=== PATIENT | female | born 1960 | race Caucasian/White ===

== ENCOUNTER 2017-03-13 20:35 | Emergency (ER) | payer OTHER ==
[~2017-03-13 20:35] MED LIST: ALAV10TA PO; BUPR300T PO; CALC500T35 PO; CITA-48 PO; D31000CA PO; EQUALIQ7; LEVO50TA4 PO; MACR100C PO; SIMV20 PO; [UNRECOGNIZED DRUG - CODE]
[2017-03-13 20:38] VITALS: BP 134/88; PULSE 88; RESP 18; TEMP 97.8; O2SAT 97
--- NOTE | 2017-03-13 21:36 | PD ---
HPI Chief Complaint: GI Complaint Time Seen by Provider: 21:33 Travel History International Travel<30 days: No Contact w/Intl Traveler<30days: No Traveled to known affect area: No History of Present Illness HPI Patient comes in after having one episode of vomiting while at work today. Patient denies any blood in vomit and reports it was nonbilious. Patient states she's been having increased postnasal drip and sinus pressure similar to previous sinus infections. Patient's after she vomited the pressure got worse as well as feeling more postnasal drip. Patient denies any chest pain, shortness of breath, abdominal pain, nausea currently, loss or change in bowel or bladder, neck pain, fevers, or numbness or tingling anywhere. Patient reports her sinus infections occasionally caused her to vomit secondary to the postnasal drip. Patient reports she is having headaches similar to previous sinus headaches. Patient describes pain as a pressure like in her ears and facial sinuses that radiates over her head. Patient denies anything making it better. PFSH Past Medical History Asthma: Yes Diminished Hearing: Yes ([place]) Immunizations Current: Yes Tubal Ligation: Yes Past Surgical History Section: Yes (X3) Endocrine Surgery: Yes (PARATHYROID GLAND REMOVED) Social History Alcohol Use: No Tobacco Use: No Substance Use: No Allergies-Medications (Allergen,Severity, Reaction): Coded Allergies: Contrast Media (Verified Allergy, Unknown, 03/13/17) Reported Meds & Prescriptions Reported Meds & Active Scripts Active Augmentin (Amoxicillin-Clavulanate) 875-125 Mg Tab 1 Tab PO BID 10 Days Zofran Odt (Ondansetron Odt) 4 Mg Tab 4 Mg SL Q6HR PRN Reported Vitamin D3 (Cholecalciferol) 50,000 Unit Cap 50,000 Units PO OROZCO, WE Alavert (Loratadine) 10 Mg Tab 10 Mg PO [facility] Low Dose Aspiri (Aspirin) 81 Mg Chw Bupropion Hcl Xl (Bupropion HCl) 300 Mg Tab 300 Mg PO DAILY Levothyroxine 50 mcg (Levothyroxine Sodium) 50 Mcg Tab 75 Mcg PO DAILY Simvastatin 20 mg (Simvastatin) 20 Mg Tab 1 Tab PO HS Citalopram Hydrobromide 40 Mg Tab 40 Mg PO DAILY Review of Systems Except as stated in HPI: all other systems reviewed are Neg Physical Exam Narrative GENERAL: Well-developed, overly nourished, in no acute distress, and non-ill appearing. SKIN: Focused skin assessment warm and dry. HEAD: Atraumatic. Normocephalic. EYES: Pupils equal and round. EOMI. No scleral icterus. No injection or drainage. Tympanic membranes pearly cruz bilaterally. Posterior pharynx nonerythematous without exudate. Uvula is midline. Postnasal drip noted. Tenderness to facial sinuses to palpation. ENT: No nasal bleeding or discharge. Mucous membranes pink and moist. NECK: Trachea midline. No cervical lymphadenopathy. Supple. No nuclear rigidity. CARDIOVASCULAR: Regular rate and rhythm. No murmur appreciated. RESPIRATORY: No accessory muscle use. No respiratory distress. Clear to auscultation. Breath sounds equal bilaterally. GASTROINTESTINAL: Abdomen soft, non-tender, nondistended. Hepatic and splenic margins not palpable. Normal bowel sounds 4. No pulsatile mass. MUSCULOSKELETAL: No obvious deformities. No clubbing. No cyanosis. No edema. Full range of motion. NEUROLOGICAL: Awake and alert. No obvious cranial nerve deficits. Motor grossly within normal limits. Normal speech. PSYCHIATRIC: Appropriate mood and affect; insight and judgment normal. Data Data Last Documented VS Vital Signs Date Time Temp Pulse Resp B/P Pulse Ox O2 Delivery O2 Flow Rate FiO2 03/13/17 22:54 77 18 154/93 96 Room Air 03/13/17 20:38 97.8 Orders Ondansetron Odt (Zofran Odt) (03/13/17 21:45) Amoxicil-Clavulanate (Augmentin) (03/13/17 21:45) Acetaminophen (Tylenol) (03/13/17 22:45) [facility] Medical Decision Making Medical Screen Exam Complete: Yes Emergency Medical Condition: Yes Differential Diagnosis Sinusitis, sinus headache, vomiting, other Narrative Course 1230 patient reassessed states she is feeling much better, still having a slight headache. Patient requested Tylenol for this. She is hungry and wanting to eat. Patient denies any other complaints or concerns. Patient looks great, non-ill appearing. The patient is tolerating fluids and is well hydrated. Appears acute sinusitis. No clinical evidence by history or evaluation to suspect meningitis and/or sepsis. There was no evidence to suggest deep abscess or cavernous sinus involvement. I discussed with the patient, diagnosis, plan of care, medications and to follow up with the patient s primary physician and/or ENT. The patient was instructed to return if the worsens in anyway, especially if not tolerating fluids, increased sinus pain or swelling, worsening headache, persistent fever, difficulty swallowing or breathing, or as needed. The patient agreed with plan. Patient in no obvious distress upon re-evaluation. Discussed patient with Dr. Stephen prior to discharge, who is in agreement with plan of care and disposition. Patient was asked if they wanted to speak to my attending, which the patient did not wish to do at this time. Any questions/concerns in reference to patient diagnosis/condition discussed and clarified prior to patient's discharge. Reinforced sheer importance of close follow up with patient's primary physician or primary care clinic and/or ENT. Instructed patient to return to ED immediately, if symptoms return/worsen. Pt showed understanding of above instructions. Further instructions and recommendations were detailed in discharge paperwork. Pt ambulated without difficulty out of ED at discharge. Diagnosis Primary Impression: Sinusitis Qualified Code: J32.9 - Sinusitis, unspecified chronicity, unspecified location Additional Impression: Sinus headache Patient Instructions: General Instructions, Sinusitis (ED) Additional Instructions: Follow-up with your primary care physician and/or ENT next week for reevaluation. Take all medication as prescribed. Drink plenty of non- caffeinated and nonalcoholic fluids. Return to the emergency department if symptoms get worse. Med/Other Pt SpecificInfo: Prescription(s) given Scripts Amoxicillin-Clavulanate (Augmentin)875-125 Mg Tab1 Tab PO BID 10 Days Ref 0 Prov:Genevieve Stephen MD 03/13/17 Ondansetron Odt (Zofran Odt)4 Mg Tab4 Mg SL Q6HR PRN (Nausea/Vomiting) #12 TAB Ref 0 Prov:Genevieve Stephen MD 03/13/17 Disposition: 01 DISCHARGE HOME Condition: Stable Gerald Patel Mar 13, 2017 21:36
[2017-03-13] MEDS ORDERED: ONDANSETRON ODT 4 MG TAB PO ONE (21:45)
[2017-03-13] MEDS ORDERED: AMOXICILLIN/CLAVULANATE K 875 MG TAB PO ONE (21:45)
[2017-03-13] MEDS ORDERED: CHOL1CAP34 PO (22:27)
[2017-03-13] MEDS ORDERED: AUGM875T3 PO (22:30)
[2017-03-13] MEDS ORDERED: ZOFR4TAB3 SL (22:30)
[2017-03-13] MEDS ORDERED: ACETAMINOPHEN 500 MG CPLT PO ONE (22:45)
[2017-03-13 22:54] VITALS: BP 154/93; PULSE 77; RESP 18; O2SAT 96
== END 2017-03-13 22:59 | disposition home or self-care (01) ==
LOC: NEPC 20:35
DX: J32.9 Chronic sinusitis, unspecified (principal)
CPT/HCPCS: 99284

== ENCOUNTER 2018-01-04 15:19 | Emergency (ER) | payer OTHER ==
[~2018-01-04] VITALS: Ht 149.9 cm; Wt 98.0 kg
[~2018-01-04 15:19] MED LIST changes: +AUGM875T3 PO; -CALC500T35 PO; +CHOL1CAP34 PO; -D31000CA PO; -EQUALIQ7; -MACR100C PO; +ZOFR4TAB3 SL
[2018-01-04 15:29] VITALS: BP 152/78; PULSE 94; RESP 18; TEMP 97; O2SAT 99
[2018-01-04 15:44] LABS: BILIRUBIN, URINE NEG (NEG); BLOOD, URINE NEG (NEG); GLUCOSE,URINE NEG (NEG); KETONE, URINE NEG (NEG); NITRITE,URINE NEG (NEG); URINE COLOR YELLOW (YELLW/STRAW); URINE LEUKOCYTE ESTERASE NEG (NEG)
[2018-01-04] MEDS ORDERED: SODIUM CHLORIDE 0.9% FLUSH 10 ML FLUSH IV FLUSH PRN (15:45)
--- NOTE | 2018-01-04 15:50 | PD ---
HPI Chief Complaint: Abdominal Pain Time Seen by Provider: 15:45 Travel History International Travel<30 days: No Contact w/Intl Traveler<30days: No Traveled to known affect area: No History of Present Illness HPI 57-year-old female patient with history of thyroid disease, presents to the ER today because she has had several days history of right upper quadrant abdominal pain radiating to the right shoulder which she states hurts more when she takes a deep breath. She denies any fevers, coughing, or any other symptoms. She states the pain is currently a 5 out of 10. She had taken 6 tablets of [id number] Tylenol this afternoon because of the pain. She denies any use of Tylenol before that. Modifying Factors: None Associated Signs & Symptoms: Right upper quadrant abdominal pain with radiation to the right shoulder Risk Factors: None PFSH Past Medical History Asthma: Yes High Cholesterol: Yes Diabetes: No Diminished Hearing: Yes ([place]) Hypertension: Yes Immunizations Current: Yes Thyroid Disease: Yes Tetanus Vaccination: Unknown ?: Not Tubal Ligation: Yes Past Surgical History Section: Yes (X3) Endocrine Surgery: Yes (PARATHYROID GLAND REMOVED) Social History Alcohol Use: No Tobacco Use: No Substance Use: No Allergies-Medications (Allergen,Severity, Reaction): Coded Allergies: diatrizoate meglumine (Unverified Allergy, Unknown, 01/04/18) gadobenic acid (Unverified Allergy, Unknown, 01/04/18) gadodiamide (Unverified Allergy, Unknown, 01/04/18) gadoteridol (Unverified Allergy, Unknown, 01/04/18) iodixanol (Unverified Allergy, Unknown, 01/04/18) iohexol (Unverified Allergy, Unknown, 01/04/18) Reported Meds & Prescriptions Reported Meds & Active Scripts Active Reported Zyrtec (Cetirizine HCl) 10 Mg Capsule 1 Tab DAILY Aspirin 81 (Aspirin) 81 Mg Tabdr 81 Mg PO DAILY Bupropion HCl ER 24 HR (Bupropion HCl) 300 Mg Tab 300 Mg PO DAILY Levothyroxine (Levothyroxine Sodium) 50 Mcg Tab 50 Mcg PO DAILY Simvastatin 20 Mg Tab 20 Mg PO DAILY Citalopram (Citalopram Hydrobromide) 40 Mg Tab 40 Mg PO DAILY Review of Systems Except as stated in HPI: all other systems reviewed are Neg Physical Exam Narrative GENERAL: Well-developed middle-age female patient currently in mild distress. Awake and oriented 3. SKIN: Focused skin assessment warm/dry. HEAD: Atraumatic. Normocephalic. EYES: Pupils equal and round. No scleral icterus. No injection or drainage. ENT: No nasal bleeding or discharge. Mucous membranes pink and moist. NECK: Trachea midline. No JVD. CARDIOVASCULAR: Regular rate and rhythm. No murmur appreciated. RESPIRATORY: No accessory muscle use. Clear to auscultation. Breath sounds equal bilaterally. GASTROINTESTINAL: Abdomen soft, non-tender, nondistended. Hepatic and splenic margins not palpable. MUSCULOSKELETAL: No obvious deformities. No clubbing. No cyanosis. No edema. NEUROLOGICAL: Awake and alert. No obvious cranial nerve deficits. Motor grossly within normal limits. Normal speech. PSYCHIATRIC: Appropriate mood and affect; insight and judgment normal. Data Data Last Documented VS Vital Signs Date Time Temp Pulse Resp B/P (MAP) Pulse Ox O2 Delivery O2 Flow Rate FiO2 01/04/18 15:29 97.0 94 18 152/78 (102) 99 Orders Orders Urinalysis - C+S If Indicated (01/04/18 15:29) Complete Blood Count With Diff (01/04/18 15:45) Comprehensive Metabolic Panel (01/04/18 15:45) Lipase (01/04/18 15:45) Iv Access Insert/Monitor (01/04/18 15:45) Ecg Monitoring (01/04/18 15:45) Oximetry (01/04/18 15:45) Sodium Chloride 0.9% Flush (Ns Flush) (01/04/18 15:45) Chest, Single Ap (01/04/18 15:45) D-Dimer (01/04/18 15:45) Tylenol (Acetaminophen) (01/04/18 15:45) Ct Abd/Pel W/O Iv Contrast (01/04/18 17:22) Ed Discharge Order (01/04/18 18:33) Labs Laboratory Tests Test 01/04/18 15:30 01/04/18 15:50 Urine Color YELLOW Urine Turbidity CLEAR Urine pH 6.0 Urine Specific [place] LESS/EQUAL 1.005 Urine Protein NEG mg/dL Urine Glucose (UA) NEG mg/dL Urine Ketones NEG mg/dL Urine Occult Blood NEG Urine Nitrite NEG Urine Bilirubin NEG Urine Urobilinogen 0.2 MG/DL Urine Leukocyte Esterase NEG Urine WBC 0-2 /hpf Urine Squamous Epithelial Cells 0-5 /hpf Microscopic Urinalysis Comment CULT NOT INDICATED White Blood Count 6.1 TH/MM3 Red Blood Count 4.48 MIL/MM3 Hemoglobin 13.1 GM/DL Hematocrit 39.7 % Mean Corpuscular Volume 88.7 FL Mean Corpuscular Hemoglobin 29.3 PG Mean Corpuscular Hemoglobin Concent 33.0 % Red Cell Distribution Width 13.7 % Platelet Count 328 TH/MM3 Mean Platelet Volume 7.7 FL Neutrophils (%) (Auto) 62.2 % Lymphocytes (%) (Auto) 25.2 % Monocytes (%) (Auto) 7.1 % Eosinophils (%) (Auto) 3.6 % Basophils (%) (Auto) 1.9 % Neutrophils # (Auto) 3.9 TH/MM3 Lymphocytes # (Auto) 1.5 TH/MM3 Monocytes # (Auto) 0.4 TH/MM3 Eosinophils # (Auto) 0.2 TH/MM3 Basophils # (Auto) 0.1 TH/MM3 CBC Comment DIFF FINAL Differential Comment D-Dimer Quantitative (PE/DVT) 0.39 MG/L FEU Blood Urea Nitrogen 15 MG/DL Creatinine 1.00 MG/DL Random Glucose 99 MG/DL Total Protein 6.6 GM/DL Albumin 3.2 GM/DL Calcium Level 8.8 MG/DL Alkaline Phosphatase 109 U/L Aspartate Amino Transf (AST/SGOT) 18 U/L Alanine Aminotransferase (ALT/SGPT) 15 U/L Total Bilirubin 0.4 MG/DL Sodium Level 140 MEQ/L Potassium Level 4.0 MEQ/L Chloride Level 107 MEQ/L Carbon Dioxide Level 25.6 MEQ/L Anion Gap 7 MEQ/L Estimat Glomerular Filtration Rate 57 ML/MIN Lipase 217 U/L Acetaminophen Level 47.3 MCG/ML [facility] Medical Decision Making Medical Screen Exam Complete: Yes Emergency Medical Condition: Yes Medical Record Reviewed: Yes Interpretation(s) Laboratory Tests Test 01/04/18 15:30 01/04/18 15:50 Albumin 3.2 GM/DL (3.4-5.0) Estimat Glomerular Filtration Rate 57 ML/MIN (>89) Acetaminophen Level 47.3 MCG/ML (10.0-30.0) Last 24 hours Impressions Chest X-Ray 01/04/18 [id number] Signed Impressions: Service Date/Time: Thursday, January 04, 2018 15:50 - CONCLUSION: The lungs are clear. Burton Rdz MD Differential Diagnosis Muscular skeletal versus hepatitis versus pneumonia versus PE Narrative Course Lab work was fairly unremarkable. Her Tylenol levels were somewhat elevated but she took a calculated dose of less than 2 g and should not be a high enough overdose to cause problems with liver. She did not have any liver enzyme elevations. CAT scan does not show any signs of acute intra-abdominal processes. At this point, my plan would be to release her with follow-up to primary care doctor. Return for any worsening in symptoms as needed. The plan has been discussed with her and she states understanding. Diagnosis Primary Impression: Abdominal pain Disposition: 01 DISCHARGE HOME Condition: Stable Kolton Marie MD Jan 04, 2018 15:50
[2018-01-04 15:51] LABS: SQUAMOUS EPITHELIAL CELL URINE 0-5 /hpf (0-5); WBC, URINE 0-2 /hpf (0-5)
[2018-01-04 16:00] LABS: AUTOMATED NEUTROPHIL # 3.9 TH/MM3 (1.8-7.7); BASOPHIL # 0.1 TH/MM3 (0-0.2); BASOPHIL % 1.9 % (0.0-2.0); EOSINOPHIL # 0.2 TH/MM3 (0-0.4); EOSINOPHIL % 3.6 % (0.0-4.0); HEMATOCRIT 39.7 % (35.0-46.0); HEMOGLOBIN 13.1 GM/DL (11.6-15.3); LYMPH % 25.2 % (9.0-44.0); LYMPHOCYTE # 1.5 TH/MM3 (1.0-4.8); MEAN CELL VOLUME 88.7 FL (80.0-100.0); MEAN CORPUSCULAR HEMOGLOBIN 29.3 PG (27.0-34.0); MEAN PLATELET VOLUME 7.7 FL (7.0-11.0); MONO % 7.1 % (0.0-8.0); MONOCYTE # 0.4 TH/MM3 (0-0.9); NEUT % 62.2 % (16.0-70.0); PLATELET COUNT 328 TH/MM3 (150-450); RED BLOOD COUNT 4.48 MIL/MM3 (4.00-5.30); RED CELL DISTRIBUTION WIDTH 13.7 % (11.6-17.2); WHITE BLOOD COUNT 6.1 TH/MM3 (4.0-11.0)
[2018-01-04] MEDS ORDERED: LEVO50TA4 PO (16:03)
[2018-01-04] MEDS ORDERED: CITA40TA4 PO (16:03)
[2018-01-04] MEDS ORDERED: BUPR300T PO (16:03)
[2018-01-04] MEDS ORDERED: ASPI1TAB57 PO (16:03)
[2018-01-04] MEDS ORDERED: SIMV20TA PO (16:03)
[2018-01-04] MEDS ORDERED: CETI10CA3 (16:03)
[2018-01-04 16:17] LABS: CHLORIDE 107 MEQ/L (98-107); SODIUM (NA) 140 MEQ/L (136-145)
--- NOTE | 2018-01-04 16:21 | RADRPT ---
EXAM DATE/TIME: 01/04/2018 15:50 [facility] COMPARISON: No previous studies available for comparison. INDICATIONS : Shortness of breath. MEDICAL HISTORY : Hyperparathyroidism. SURGICAL HISTORY : None. ENCOUNTER: Initial ACUITY: 2 days PAIN SCORE: 0/10 LOCATION: Bilateral chest FINDINGS: A single view of the chest demonstrates the lungs to be symmetrically aerated without evidence of mas s, infiltrate or effusion. The cardiomediastinal contours are unremarkable. Mild left thoracolumbar scoliosis.. CONCLUSION: The lungs are clear. Burton Rdz MD on January 04, 2018 at 16:18 Board Certified Radiologist. This report was verified electronically.
[2018-01-04 16:22] LABS: ALBUMIN 3.2 GM/DL (3.4-5.0); BICARBONATE 25.6 MEQ/L (21.0-32.0); BLOOD UREA NITROGEN 15 MG/DL (7-18); CALCIUM 8.8 MG/DL (8.5-10.1); GLUCOSE,RANDOM 99 MG/DL (74-106)
[2018-01-04 16:25] LABS: ALT (GPT) 15 U/L (10-53); AST (GOT) 18 U/L (15-37); GLOMERULAR FILTRATION RATE 57 ML/MIN (>89)
[2018-01-04 16:27] LABS: TOTAL BILIRUBIN ADULT 0.4 MG/DL (0.2-1.0); TOTAL PROTEIN 6.6 GM/DL (6.4-8.2)
[2018-01-04 16:28] LABS: ALKALINE PHOSPHATASE 109 U/L (45-117)
[2018-01-04 17:15] LABS: ACETAMINOPHEN 47.3 MCG/ML (10.0-30.0)
--- NOTE | 2018-01-04 18:23 | RADRPT ---
EXAM DATE/TIME: 01/04/2018 18:01 [facility] COMPARISON: No previous studies available for comparison. INDICATIONS : Right sided abdominal pain. ORAL CONTRAST: No oral contrast ingested. RADIATION DOSE: 24.75 CTDIvol (mGy) MEDICAL HISTORY : Hypercholesterolemia. Hypertension. SURGICAL HISTORY : Tubal ligation. section.Parathyroid gland. ENCOUNTER: Initial ACUITY: 2 days PAIN SCALE: 5/10 LOCATION: Right abdomen TECHNIQUE: Volumetric scanning of the abdomen and pelvis was performed. Using automated exposure control and ad justment of the mA and/or kV according to patient size, radiation dose was kept as low as reasonably achievable to obtain optimal diagnostic quality images. DICOM format image data is available electro nically for review and comparison. FINDINGS: LOWER LUNGS: The visualized lower lungs are clear. LIVER: Homogeneous density without lesion for noncontrast technique. There is no dilation of the biliary tr ee. No calcified gallstones. SPLEEN: Normal size without lesion. PANCREAS: Within normal limits. KIDNEYS: There is a solitary 5 mm calcified stone lower pole collecting system on the left side. Bilateral re nal cysts, the largest of the normal left side measuring 3.5 cm. No evidence of hydronephrosis or hy droureter on either side. ADRENAL GLANDS: Within normal limits. VASCULAR: There is no aortic aneurysm. BOWEL/MESENTERY: The stomach, small bowel, and colon demonstrate no acute abnormality. There is no free intraperitone al air or fluid. ABDOMINAL WALL: Within normal limits. RETROPERITONEUM: There is no lymphadenopathy. BLADDER: No wall thickening or mass. REPRODUCTIVE: Within normal limits. INGUINAL: There is no lymphadenopathy or hernia. MUSCULOSKELETAL: Bladder degenerative changes in the posterior elements of the lower lumbar spine. CONCLUSION: 1. Nonobstructing 5 mm calcified stone lower pole left kidney. 2. Bilateral renal cysts. Burton Rdz MD on January 04, 2018 at 18:18 Board Certified Radiologist. This report was verified electronically.
[2018-01-04 19:03] VITALS: BP 104/79
== END 2018-01-04 19:08 | disposition home or self-care (01) ==
LOC: PHED 15:19
DX: R10.11 Right upper quadrant pain (principal); E07.9 Disorder of thyroid, unspecified; J45.909 Unspecified asthma, uncomplicated; E78.00 Pure hypercholesterolemia, unspecified; I10 Essential (primary) hypertension
CPT/HCPCS: 71045; 74176; 80053; 80307; 81001; 83690; 85025; 85379; 99284

== ENCOUNTER 2018-01-30 03:01 | Emergency (ER) | payer OTHER ==
[~2018-01-30] VITALS: Ht 149.9 cm; Wt 99.2 kg
[~2018-01-30 03:01] MED LIST changes: -ALAV10TA PO; +ASPI1TAB57 PO; -AUGM875T3 PO; +CETI10CA3; -CHOL1CAP34 PO; -CITA-48 PO; +CITA40TA4 PO; -SIMV20 PO; +SIMV20TA PO; -ZOFR4TAB3 SL; -[UNRECOGNIZED DRUG - CODE]
[2018-01-30 03:06] VITALS: BP 129/85; PULSE 93; TEMP 97.5; O2SAT 99
[2018-01-30] MEDS ORDERED: AUGM875T3 PO (03:30)
[2018-01-30] MEDS ORDERED: BENZ100 PO (03:30)
--- NOTE | 2018-01-30 03:30 | PD ---
HPI Chief Complaint: Cold / Flu Symptoms Time Seen by Provider: 03:17 Travel History International Travel<30 days: No Contact w/Intl Traveler<30days: No Traveled to known affect area: No History of Present Illness HPI The patient is a 57-year-old female that since yesterday his complaint of sinus drainage and sinus pain/pressure. She states she gets good relief from sinusitis which she has had before with Tessalon Perles and Augmentin. She does not smoke. She states that she has a history of chronic sinusitis. She states when it rains she gets this frequently. PFSH Past Medical History Asthma: Yes High Cholesterol: Yes Diabetes: No Patient Takes Glucophage: No Diminished Hearing: Yes ([place]) Hypertension: Yes Immunizations Current: Yes Thyroid Disease: Yes Tubal Ligation: Yes Past Surgical History Section: Yes (X3) Endocrine Surgery: Yes (PARATHYROID GLAND REMOVED) Social History Alcohol Use: No Tobacco Use: No Substance Use: No Allergies-Medications (Allergen,Severity, Reaction): Coded Allergies: diatrizoate meglumine (Unverified Allergy, Unknown, 01/30/18) gadobenic acid (Unverified Allergy, Unknown, 01/30/18) gadodiamide (Unverified Allergy, Unknown, 01/30/18) gadoteridol (Unverified Allergy, Unknown, 01/30/18) iodixanol (Unverified Allergy, Unknown, 01/30/18) iohexol (Unverified Allergy, Unknown, 01/30/18) Reported Meds & Prescriptions Reported Meds & Active Scripts Active Reported Zyrtec (Cetirizine HCl) 10 Mg Capsule 1 Tab DAILY Aspirin 81 (Aspirin) 81 Mg Tabdr 81 Mg PO DAILY Bupropion HCl ER 24 HR (Bupropion HCl) 300 Mg Tab 300 Mg PO DAILY Levothyroxine (Levothyroxine Sodium) 50 Mcg Tab 50 Mcg PO DAILY Simvastatin 20 Mg Tab 20 Mg PO DAILY Citalopram (Citalopram Hydrobromide) 40 Mg Tab 40 Mg PO DAILY Review of Systems Except as stated in HPI: all other systems reviewed are Neg Physical Exam Narrative GENERAL: Well-nourished, well-developed patient in no respiratory distress. She does have sniffling consistent with sinus drainage. Her vital signs show temperature of 97.5 with pulse of 93 but are otherwise normal. SKIN: Focused skin assessment warm/dry. HEAD: Normocephalic. EYES: No scleral icterus. No injection or drainage. NECK: Supple, trachea midline. No JVD or lymphadenopathy. CARDIOVASCULAR: Regular rate and rhythm without murmurs, gallops, or rubs. RESPIRATORY: Breath sounds equal bilaterally. No accessory muscle use. GASTROINTESTINAL: Abdomen soft, non-tender, nondistended. MUSCULOSKELETAL: No cyanosis, or edema. BACK: Nontender without obvious deformity. No CVA tenderness. ENT: The throat is clear and the tympanic membranes are clear. She does have maxillary sinus tenderness bilaterally. Data Data Last Documented VS Vital Signs Date Time Temp Pulse Resp B/P (MAP) Pulse Ox O2 Delivery O2 Flow Rate FiO2 01/30/18 03:18 93 20 99 Room Air 01/30/18 03:06 97.5 129/85 (100) [facility] Medical Decision Making Medical Screen Exam Complete: Yes Emergency Medical Condition: Yes Medical Record Reviewed: Yes Differential Diagnosis Allergic rhinitis, sinusitis, pharyngitis, ear infection Narrative Course The patient appears to have sinusitis. Plan: The patient will be given Augmentin 875 twice daily for 10 days and Tessalon Perles for the cough. Diagnosis Primary Impression: Sinusitis Additional Instructions: Since she do not smoke, the sinusitis is likely caused by allergens. When it rains, molds start putting out spores, and this may be irritating you. Follow- up next week with your primary care physician. Med/Other Pt SpecificInfo: Prescription(s) given Scripts Amoxicillin-Clavulanate (Augmentin) 875-125 Mg Tab 1 TAB PO BID for Infection, #20 TAB 0 Refills Prov: Israel Stevens MD 01/30/18 Benzonatate (Tessalon Perles) 100 Mg Cap 100 MG PO TID Y for COUGH, #30 CAP 0 Refills Prov: Israel Stevens MD 01/30/18 Disposition: 01 DISCHARGE HOME Condition: Stable Israel Stevens MD Jan 30, 2018 03:30
[2018-01-30] MEDS ORDERED: AMOXICILLIN/CLAVULANATE K 875 MG TAB PO ONE (03:45)
[2018-01-30] MEDS ORDERED: BENZONATATE 100 MG CAP PO ONE (03:45)
== END 2018-01-30 03:50 | disposition home or self-care (01) ==
LOC: PHED 03:01
DX: J32.9 Chronic sinusitis, unspecified (principal); E78.00 Pure hypercholesterolemia, unspecified; I10 Essential (primary) hypertension; J45.909 Unspecified asthma, uncomplicated
CPT/HCPCS: 99283

== ENCOUNTER → 2018-02-17 | Outpatient (CLI) | payer OTHER ==
[~2018-02-17] MED LIST changes: +AUGM875T3 PO; +BENZ100 PO
[2018-02-17 13:27] LABS: HEMATOCRIT 41.3 % (35.0-46.0); HEMOGLOBIN 13.7 GM/DL (11.6-15.3); MEAN CELL VOLUME 89.4 FL (80.0-100.0); MEAN CORPUSCULAR HEMOGLOBIN 29.6 PG (27.0-34.0); MEAN CORPUSCULAR HGB CONC 33.1 % (32.0-36.0); MEAN PLATELET VOLUME 8.1 FL (7.0-11.0); PLATELET COUNT 336 TH/MM3 (150-450); RED BLOOD COUNT 4.62 MIL/MM3 (4.00-5.30); RED CELL DISTRIBUTION WIDTH 14.2 % (11.6-17.2); WHITE BLOOD COUNT 5.9 TH/MM3 (4.0-11.0)
[2018-02-17 14:05] LABS: ALBUMIN 3.4 GM/DL (3.4-5.0); AST (GOT) 18 U/L (15-37); BICARBONATE 28.2 MEQ/L (21.0-32.0); BLOOD UREA NITROGEN 16 MG/DL (7-18); CALCIUM 8.6 MG/DL (8.5-10.1); CHLORIDE 105 MEQ/L (98-107); CREATININE 0.87 MG/DL (0.50-1.00); GLOMERULAR FILTRATION RATE 67 ML/MIN (>89); GLUCOSE,FASTING 89 MG/DL (74-99); SODIUM (NA) 143 MEQ/L (136-145)
[2018-02-17 14:14] LABS: ALKALINE PHOSPHATASE 112 U/L (45-117); ALT (GPT) 31 U/L (10-53); CHOLESTEROL 175 MG/DL (120-200); CHOLESTEROL/ HDL RATIO 3.82 RATIO; FREE T4 0.99 NG/DL (0.76-1.46); HDL CHOLESTEROL 45.7 MG/DL (40.0-60.0); LDL CHOLESTEROL 106 MG/DL (0-99); TOTAL BILIRUBIN ADULT 0.5 MG/DL (0.2-1.0); TRIGLYCERIDES 115 MG/DL (42-150)
== END ==
LOC: PLAB 10:20
PROVIDERS: ATTEND Internal Medicine
DX: E55.9 Vitamin D deficiency, unspecified (principal); R94.4 Abnormal results of kidney function studies; E78.1 Pure hyperglyceridemia; E06.3 Autoimmune thyroiditis
CPT/HCPCS: 36415; 80053; 80061; 82306; 84439; 84443; 84480; 85027